=== PATIENT | female | born 1965 | race Native Hawaiian/Other Pacific Islander ===

== ENCOUNTER 2018-01-26 16:25 | Emergency (ER) | payer SELFPAY ==
[~2018-01-26] VITALS: Ht 177.8 cm; Wt 90.9 kg
[~2018-01-26 16:25] MED LIST: NOCURR
[2018-01-26 17:02] LABS: GLUCOSE,POINT OF CARE 424 MG/DL (70-110)
[2018-01-26 19:30] VITALS: BP 146/92
[2018-01-26 19:32] LABS: GLUCOSE,POINT OF CARE 337 MG/DL (70-110)
== END 2018-01-26 20:06 | disposition home or self-care (01) ==
LOC: EMS 16:26
DX: L25.9 Unspecified contact dermatitis, unspecified cause (principal); E11.65 Type 2 diabetes mellitus with hyperglycemia
CPT/HCPCS: 82962; 99283

== ENCOUNTER 2022-06-23 04:21 | Emergency (ER) | payer MEDICAID ==
[~2022-06-23] VITALS: Ht 170.2 cm; Wt 72.7 kg
[2022-06-23] MEDS ORDERED: PANT20TA PO (04:31)
[2022-06-23] MEDS ORDERED: METF-446 PO (04:31)
[2022-06-23] MEDS ORDERED: LISI1TAB53 PO (04:31)
[2022-06-23] MEDS ORDERED: [UNRECOGNIZED DRUG - CODE] (04:31)
[2022-06-23] MEDS ORDERED: SODIUM CHLORIDE 0.9% 1,000 ML IV ONE (05:15)
[2022-06-23 06:57] LABS: BASOPHILS % (AUTO) 1.1 % (0.0-2.0); HEMATOCRIT 33.7 % (36-46); HEMOGLOBIN 11.4 g/dL (12.0-16.0); LYMPHOCYTES # (AUTO) 2.4 K/uL (1.0-4.8); LYMPHOCYTES % (AUTO) 19.2 % (22.0-44.0); MEAN CORPUSCULAR HEMOGLOBIN 29.8 pg (26.0-34.0); MEAN CORPUSCULAR HGB CONC 33.7 G/dL (31.0-37.0); MEAN CORPUSCULAR VOLUME 89 fL (80-100); MONOCYTES # (AUTO) 0.8 K/uL (0.1-1.0); MONOCYTES % (AUTO) 6.1 % (2.0-9.0); NEUTROPHILS % (AUTO) 72.6 % (40.0-70.0); PLATELET COUNT (AUTO) 269 K/uL (150-450); RED BLOOD CELL COUNT(AUTO) 3.81 MIL/uL (4.00-5.20); RED CELL DISTRIBUTION WIDTH 15.5 % (11.5-14.5)
[2022-06-23 07:10] LABS: APPEARANCE,URINE HAZY (CLEAR); BILIRUBIN,URINE NEGATIVE (NEGATIVE); GLUCOSE, URINE (UA) NEGATIVE (NEGATIVE); KETONES,URINE NEGATIVE (NEGATIVE); LEUKOCYTE ESTERASE ,URINE MODERATE (NEGATIVE); NITRATE,URINE NEGATIVE (NEGATIVE); OCCULT BLOOD,URINE NEGATIVE (NEGATIVE); PH,URINE 5.5 (5.0-8.0); PROTEIN,URINE 30-70 mg/dL (NEGATIVE); SPECIFIC GRAVITIY, URINE 1.021 (1.003-1.030); UROBILINOGEN,URINE <=1.0 mg/dL (<=1.0)
[2022-06-23 07:13] LABS: CALCIUM, TOTAL 8.8 mg/dL (8.8-10.5); CREATININE 1.19 mg/dL (0.60-1.30); POTASSIUM 4.6 mmol/L (3.5-5.1)
[2022-06-23] MEDS ORDERED: ONDANSETRON HCL 4 MG/2 ML VIAL IVP ONE (07:15)
[2022-06-23 07:17] LABS: RBC,URINE 0-2 /HPF (0-2)
[2022-06-23 07:18] LABS: BACTERIA,URINE Moderate /HPF (None Seen); SQUAMOUS EPITHELIAL CELL,UR Moderate /LPF (None Seen)
[2022-06-23 07:19] LABS: BILIRUBIN,TOTAL 0.7 mg/dL (0.1-1.0); TOTAL PROTEIN, SERUM 7.6 g/dL (6.4-8.2)
[2022-06-23] MEDS ORDERED: ATOR40TA71 PO (07:51)
[2022-06-23] MEDS ORDERED: LISI-657 PO (07:52)
[2022-06-23] MEDS ORDERED: ONDA-104 PO (09:21)
[2022-06-23] MEDS ORDERED: CEPH-558 PO (09:23)
[2022-06-23 10:14] VITALS: BP 133/79
== END 2022-06-23 10:18 | disposition home or self-care (01) ==
LOC: EMS 04:27
DX: S36.112A Contusion of liver, initial encounter (principal); N39.0 Urinary tract infection, site not specified; E11.9 Type 2 diabetes mellitus without complications; Z87.828 Personal history of other (healed) physical injury and trauma; X58.XXXA Exposure to other specified factors, initial encounter; Y93.89 Activity, other specified; Y92.89 Other specified places as the place of occurrence of the external cause; Y99.8 Other external cause status
CPT/HCPCS: 99285; 74176; 96374; 76705; 96361; 80053; 81001; 83690; 84484; 85025; 36415; 87086; 87077; 74022; 93005; J2405; J7030

== ENCOUNTER 2022-07-06 13:35 | Emergency (ER) | payer MEDICAID ==
[~2022-07-06] VITALS: Ht 170.2 cm; Wt 69.1 kg
[~2022-07-06 13:35] MED LIST changes: +ATOR40TA71 PO; +CEPH-558 PO; +LISI-657 PO; +METF-446 PO; -NOCURR; +ONDA-104 PO; +PANT20TA PO; +[UNRECOGNIZED DRUG - CODE]
[2022-07-06] MEDS ORDERED: SUCR1ORA15 PO (14:13)
[2022-07-06 15:02] LABS: BASOPHILS % (AUTO) 0.4 % (0.0-2.0); EOSINOPHILS % (AUTO) 0.5 % (1.0-6.0); HEMATOCRIT 36.2 % (36-46); HEMOGLOBIN 12.4 g/dL (12.0-16.0); LYMPHOCYTES # (AUTO) 1.2 K/uL (1.0-4.8); LYMPHOCYTES % (AUTO) 5.7 % (22.0-44.0); MEAN CORPUSCULAR HEMOGLOBIN 29.9 pg (26.0-34.0); MEAN CORPUSCULAR HGB CONC 34.2 G/dL (31.0-37.0); MEAN CORPUSCULAR VOLUME 87 fL (80-100); MONOCYTES # (AUTO) 1.2 K/uL (0.1-1.0); MONOCYTES % (AUTO) 5.5 % (2.0-9.0); NEUTROPHILS # (AUTO) 18.5 K/uL (1.8-7.7); PLATELET COUNT (AUTO) 323 K/uL (150-450); RED BLOOD CELL COUNT(AUTO) 4.14 MIL/uL (4.00-5.20); RED CELL DISTRIBUTION WIDTH 14.5 % (11.5-14.5)
[2022-07-06 15:03] LABS: NEUTROPHILS % (AUTO) 87.9 % (40.0-70.0)
[2022-07-06 15:15] LABS: ANION GAP 9 mmol/L (8-16); CALCIUM, TOTAL 8.7 mg/dL (8.8-10.5); CARBON DIOXIDE 21 mmol/L (22-29); CHLORIDE 96 mmol/L (98-107); CREATININE 0.93 mg/dL (0.60-1.30); GLUCOSE,RANDOM 185 mg/dL (70-110); POTASSIUM 3.4 mmol/L (3.5-5.1); SODIUM SERUM 126 mmol/L (136-145); UREA NITROGEN, BLOOD 14 mg/dL (7-18)
[2022-07-06 15:16] LABS: GLOMERULAR FILTR. RATE CALC > 60 mL/min (>60)
[2022-07-06 15:23] LABS: ALANINE AMINOTRANSFERASE 18 U/L (12-78); ALBUMIN 2.7 g/dL (3.4-5.0); ALKALINE PHOSPHATASE 159 U/L (46-116); ASPARTATE AMINOTRANSFERASE 24 U/L (15-37); BILIRUBIN,TOTAL 0.6 mg/dL (0.1-1.0); LIPASE 62 U/L (73-393); TOTAL PROTEIN, SERUM 7.3 g/dL (6.4-8.2)
[2022-07-06 15:40] LABS: PLATELET MORPHOLOGY COMMENT LARGE PLTS PRESENT
[2022-07-06] MEDS ORDERED: IOHEXOL 350 MG/ML 100 ML VIAL ONE (15:56)
[2022-07-06] MEDS ORDERED: SODIUM CHLORIDE 0.9% 100 ML ONE (15:56)
[2022-07-06] MEDS ORDERED: SODIUM CHLORIDE 0.9% 1,000 ML IV ONE (16:00)
[2022-07-06] MEDS ORDERED: LISI10TA24 PO (18:12)
[2022-07-06] MEDS ORDERED: PANT-31 PO (18:14)
[2022-07-06] MEDS ORDERED: PIPERACILLIN SODIUM/TAZOBACTAM 4.5 GM in DEXTROSE 5%-WATER 100 ML IV ONE (18:15)
[2022-07-06 20:30] LABS: COVID AG,FIA SOURCE NASAL SWAB
[2022-07-06] MEDS ORDERED: INSULIN LISPRO 100 UNITS/ML SQ PRN (20:45)
[2022-07-06] MEDS ORDERED: ACETAMINOPHEN 325 MG TABLET PO PRN (20:45)
[2022-07-06] MEDS ORDERED: ONDANSETRON HCL 4 MG/2 ML VIAL IVP PRN (20:45)
[2022-07-06] MEDS ORDERED: DEXTROSE 50%-WATER 25 GM/50 ML SYRINGE IVP PRN (20:45)
[2022-07-06] MEDS ORDERED: ONDANSETRON HCL 4 MG TABLET PO PRN (20:45)
[2022-07-06] MEDS ORDERED: RINGERS LACTATED IV ONE (20:45)
[2022-07-06] MEDS ORDERED: PANTOPRAZOLE SODIUM 40 MG DR TABLET PO SCH (21:00)
[2022-07-06] MEDS ORDERED: ACETAMINOPHEN 1000 MG/ISO-OSM 100 ML IV ONE (21:15)
[2022-07-06 23:14] LABS: ANION GAP 9 mmol/L (8-16); CALCIUM, TOTAL 8.1 mg/dL (8.8-10.5); CARBON DIOXIDE 20 mmol/L (22-29); CHLORIDE 99 mmol/L (98-107); CREATININE 0.83 mg/dL (0.60-1.30); GLUCOSE,RANDOM 132 mg/dL (70-110); SODIUM SERUM 128 mmol/L (136-145); UREA NITROGEN, BLOOD 11 mg/dL (7-18)
[2022-07-06 23:15] LABS: GLOMERULAR FILTR. RATE CALC > 60 mL/min (>60)
[2022-07-06] MEDS ORDERED: RINGERS SOLUTION,LACTATED 1,000 ML IV SCH (23:45)
[2022-07-07] MEDS ORDERED: PIPERACILLIN/TAZO 3.375 GM/D5W 50 ML IV SCH
[2022-07-07] MEDS ORDERED: HEPARIN SODIUM,PORCINE 5,000 UNITS/ML VIAL SQ SCH
[2022-07-07] MEDS ORDERED: POTASSIUM CHLORIDE 20 MEQ ER TABLET PO ONE (00:15)
[2022-07-07 00:22] VITALS: BP 141/74
[2022-07-07] MEDS ORDERED: ATORVASTATIN CALCIUM 40 MG TABLET PO SCH (09:00)
== END 2022-07-07 00:55 | disposition short-term general hospital (02) ==
LOC: EMS 13:36
DX: K51.00 Ulcerative (chronic) pancolitis without complications (principal); R10.84 Generalized abdominal pain; K76.9 Liver disease, unspecified; E11.9 Type 2 diabetes mellitus without complications; I10 Essential (primary) hypertension; Z98.890 Other specified postprocedural states; Z20.822 Contact with and (suspected) exposure to COVID-19
CPT/HCPCS: 99285; 74177; 96365; 96361; 96366; 87426; 80053; 82962; 83605; 83690; 85025; 87040; 96368; 84145; 80048; 36415; J2543 ×2; Q9967; J7060; J7120; J7030; J7050; J0131